=== PATIENT | male | born 1950 | race Caucasian/White ===

== ENCOUNTER 2019-03-17 07:32 | Day surgery (SDC) | payer MEDICARE ==
[~2019-03-17] VITALS: Ht 172.7 cm; Wt 73.0 kg
[~2019-03-17 07:32] MED LIST: ACET325T14 PO; ESOM20CA PO; IRON SUPPLEMENT PO; LORA10TA75 PO; MULT-516 PO; OMEG1CAP23 PO
[2019-03-17] MEDS ORDERED: LACTATED RINGERS 1,000 ML IV SCH (08:17)
[2019-03-17] MEDS ORDERED: EPINEPHRINE 1 MG/ML, 1ML ONE (08:18)
[2019-03-17] MEDS ORDERED: BUPIVACAINE/PF 0.5% ONE (08:18)
[2019-03-17] MEDS ORDERED: FENTANYL PF 250 MCG/5ML ONE (08:28)
[2019-03-17] MEDS ORDERED: MIDAZOLAM 1 MG/ML, 2ML ONE (08:28)
[2019-03-17 08:40] VITALS: BP 135/87
[2019-03-17] MEDS ORDERED: BUPIVACAINE/EPI 0.5% 1:200K INFIL ONE (09:11)
[2019-03-17] MEDS ORDERED: NEOSTIGMINE 1 MG/ML, 10ML ONE (09:20)
[2019-03-17] MEDS ORDERED: ONDANSETRON 2MG/ML, 2ML ONE (09:20)
[2019-03-17] MEDS ORDERED: SUCCINYLCHOLINE 20 MG/ML, 10ML ONE (09:20)
[2019-03-17] MEDS ORDERED: ROCURONIUM 10MG/ML,5ML ONE (09:20)
[2019-03-17] MEDS ORDERED: DEXAMETHASONE 4 MG/ML, 1ML ONE (09:20)
[2019-03-17] MEDS ORDERED: CEFAZOLIN 1,000 MG ONE (09:20)
[2019-03-17] MEDS ORDERED: GLYCOPYRROLATE 0.2MG/1ML, 5ML ONE (09:20)
[2019-03-17] MEDS ORDERED: PROPOFOL 10 MG/ML, 20ML ONE (09:20)
[2019-03-17] MEDS ORDERED: OXYcodone 5 MG/5 ML ORAL.SOL UDC PO PRN (09:30)
[2019-03-17] MEDS ORDERED: FENTANYL PF 100 MCG/2ML IV PRN (09:30)
[2019-03-17] MEDS ORDERED: ONDANSETRON ODT 8 MG PO PRN (09:30)
[2019-03-17] MEDS ORDERED: PROMETHAZINE 25 MG/ML, 1ML IV PRN (09:30)
[2019-03-17] MEDS ORDERED: ONDANSETRON 2MG/ML, 2ML IV PRN (09:30)
[2019-03-17] MEDS ORDERED: ACETAMINOPHEN 325 MG TABLET PO PRN (09:30)
[2019-03-17] MEDS ORDERED: MEPERIDINE/PF 25MG/0.5ML IVPush PRN (09:30)
[2019-03-17] MEDS ORDERED: HYDROmorphone 2 MG/ML, 1ML IVPush PRN (09:30)
[2019-03-17] MEDS ORDERED: SUGAMMADEX 200 MG/2 ML IVPush ONE (09:43)
[2019-03-17] MEDS ORDERED: OXYcodone 5 MG/5 ML ORAL.SOL UDC ONE (10:35)
== END 2019-03-17 14:00 | disposition home or self-care (01) ==
LOC: OUT 07:32
PROVIDERS: ATTEND Surgery
DX: K40.90 Unilateral inguinal hernia, without obstruction or gangrene, not specified as recurrent (principal); K40.91 Unilateral inguinal hernia, without obstruction or gangrene, recurrent; K21.9 Gastro-esophageal reflux disease without esophagitis; D50.9 Iron deficiency anemia, unspecified; Z88.8 Allergy status to other drugs, medicaments and biological substances; Z88.1 Allergy status to other antibiotic agents; Z88.5 Allergy status to narcotic agent; Z98.890 Other specified postprocedural states
CPT/HCPCS: 49650; 49651; C1781; J0171; J0330; J0690; J1100; J2250; J2405; J2704; J2710; J3010; J3490; J7120

== ENCOUNTER → 2020-08-09 | Outpatient (CLI) | payer MEDICARE | END | disposition home or self-care (01) | LOC: STAR 14:26 | PROVIDERS: ATTEND Anesthesiology | DX: Z01.812 Encounter for preprocedural laboratory examination (principal); Z20.828 Contact with and (suspected) exposure to other viral communicable diseases; N43.3 Hydrocele, unspecified | CPT/HCPCS: 36415; 87635; 93005 ==

== ENCOUNTER 2020-08-13 08:16 | Day surgery (SDC) | payer MEDICARE ==
[~2020-08-13] VITALS: Ht 172.7 cm; Wt 70.0 kg
[2020-08-13] MEDS ORDERED: CHLORHEXIDINE 15 ML UDC MM STA (08:36)
[2020-08-13] MEDS ORDERED: LACTATED RINGERS 1,000 ML IV SCH (08:37)
[2020-08-13 08:53] VITALS: BP 117/77
[2020-08-13] MEDS ORDERED: ROCURONIUM 10MG/ML,5ML ONE (11:17)
[2020-08-13] MEDS ORDERED: DEXAMETHASONE 4 MG/ML, 1ML ONE (11:17)
[2020-08-13] MEDS ORDERED: GLYCOPYRROLATE 0.2MG/1ML, 5ML ONE (11:17)
[2020-08-13] MEDS ORDERED: FENTANYL PF 100 MCG/2ML ONE ×2 (11:17→13:31)
[2020-08-13] MEDS ORDERED: MIDAZOLAM 1 MG/ML, 2ML ONE (11:17)
[2020-08-13] MEDS ORDERED: PROPOFOL 10 MG/ML, 20ML ONE (11:17)
[2020-08-13] MEDS ORDERED: BUPIVACAINE/PF 0.25% ONE (11:40)
[2020-08-13] MEDS ORDERED: NEOSPORIN OINT, 15GM ONE (11:40)
[2020-08-13] MEDS ORDERED: CEFAZOLIN 1,000 MG ONE (12:08)
[2020-08-13] MEDS ORDERED: LIDOCAINE-MPF 2% ,5ML ONE (12:08)
[2020-08-13] MEDS ORDERED: ONDANSETRON 2MG/ML, 2ML IV PRN (13:00)
[2020-08-13] MEDS ORDERED: HYDROcodone/APAP 5/325 TABLET PO PRN (13:00)
[2020-08-13] MEDS ORDERED: METOCLOPRAMIDE 5 MG/ML, 2ML IVPush PRN (13:30)
[2020-08-13] MEDS ORDERED: DIAZEPAM 5 MG/ML, 2ML IVPush PRN (13:30)
[2020-08-13] MEDS ORDERED: EPHEDRINE 50 MG/ML, 1ML IVPush PRN (13:30)
[2020-08-13] MEDS ORDERED: DIPHENHYDRAMINE 50 MG/ML, 1ML IVPush PRN (13:30)
[2020-08-13] MEDS ORDERED: KETOROLAC 30 MG/1 ML IV PRN (13:30)
[2020-08-13] MEDS ORDERED: HYDROmorphone 1 MG/ML, 1ML INJ IVPush PRN (13:30)
[2020-08-13] MEDS ORDERED: FENTANYL PF 100 MCG/2ML IV PRN (13:30)
[2020-08-13] MEDS ORDERED: MIDAZOLAM 1 MG/ML, 2ML IV PRN (13:30)
[2020-08-13] MEDS ORDERED: METHOCARBAMOL 1,000 MG in DEXTROSE 5% 100 ML IV PRN (13:30)
[2020-08-13] MEDS ORDERED: hydrALAzine 20 MG/ML, 1ML IV PRN (13:30)
[2020-08-13] MEDS ORDERED: ALBUTEROL/IPRATROPIUM 2.5MG/0.5MG, 3 ML NPPB PRN (13:30)
[2020-08-13] MEDS ORDERED: EPHEDRINE 50 MG/ML, 1ML IM PRN (13:30)
[2020-08-13] MEDS ORDERED: ACETAMINOPHEN 325 MG TABLET PO PRN (13:30)
[2020-08-13] MEDS ORDERED: LABETALOL 5MG/ML, 20ML IV PRN (13:30)
[2020-08-13] MEDS ORDERED: HALOPERIDOL 5 MG/ML IV PRN (13:30)
[2020-08-13] MEDS ORDERED: ONDANSETRON 2MG/ML, 2ML IVPush PRN (13:30)
[2020-08-13] MEDS ORDERED: MEPERIDINE/PF 25MG/0.5ML IVPush PRN (13:30)
[2020-08-13] MEDS ORDERED: LORazepam 2 MG/ML, 1ML IVPush PRN (13:30)
[2020-08-13] MEDS ORDERED: OXYcodone 5 MG/5 ML ORAL.SOL UDC ONE (13:31)
[2020-08-13] MEDS ORDERED: KETOROLAC 30 MG/1 ML ONE (13:36)
[2020-08-13] MEDS ORDERED: ACETAMINOPHEN 650 MG/20.3 ML UDC ONE (13:36)
== END 2020-08-13 15:30 | disposition home or self-care (01) ==
LOC: OUT 08:16
PROVIDERS: ATTEND Urology
DX: N43.3 Hydrocele, unspecified (principal); K21.9 Gastro-esophageal reflux disease without esophagitis; Z88.5 Allergy status to narcotic agent; Z88.2 Allergy status to sulfonamides; Z88.1 Allergy status to other antibiotic agents; Z98.890 Other specified postprocedural states; Z79.899 Other long term (current) drug therapy
CPT/HCPCS: 55040; 88302; J0690; J1100; J1885; J2250; J2704; J3010; J3490; J7120